=== PATIENT | female | born 1950 | race Caucasian/White ===

== ENCOUNTER 2020-08-27 07:10 | Outpatient (CLI) | payer OTHER, SELFPAY ==
[2020-08-27 07:50] LABS: Alanine Aminotransferase 13 U/L (4-35); Albumin Level 4.3 g/dL (3.5-5.1); Alkaline Phosphatase 50 U/L (38-126); Anion Gap 8 mmol/L (8-16); Aspartate Amino Transferase 24 U/L (14-36); Bilirubin,Total 0.3 mg/dL (0.2-1.3); Blood Urea Nitrogen 18 mg/dL (7-17); Carbon Dioxide 29 mmol/L (22-30); Chloride 105 mmol/L (98-107); Cholesterol 240 mg/dL (0-200); Estimated Glomerular Filt Rate > 60; Glucose 84 mg/dL (65-105); HDL Direct 70 mg/dL; Potassium 4.5 mmol/L (3.4-5.0); Sodium 142 mmol/L (137-145); Triglycerides 79 mg/dL (<150)
[2020-08-27 08:01] LABS: LDL Cholesterol Direct 120 mg/dL
== END 2020-08-27 07:11 | disposition home or self-care (01) ==
PROVIDERS: PCP Internal Medicine; Visit Provider Nurse Practitioner
DX: E78.5 Hyperlipidemia, unspecified (principal); E03.9 Hypothyroidism, unspecified; Z79.899 Other long term (current) drug therapy
CPT/HCPCS: 36415; 80053; 80061; 84443

== ENCOUNTER 2022-11-16 01:05 | Day surgery (SDC) | payer OTHER, SELFPAY ==
[2022-10-30 13:08] VITALS: BMI 22.2
--- NOTE | 2022-11-14 20:03 | PM.HPGS ---
History of Present Illness History of Present Illness Consent: Risks, benefits, and alternatives have been discussed and questions answered. Patient agrees to proceed with procedure. Chief complaint: Hx of Colon Polyps Narrative: Deb Segura is a 72 year old female who had 2 polyps removed 8 years ago Review of Systems Review of Systems: All systems reviewed & are unremarkable except as noted in HPI and below PMFSH Family History Family History Father Patient's father is Family history of heart disease in male family member before age 55 Social History Social History Smoking status: Never smoker Alcohol intake: current Drinks per week: 1 Substance use type: does not use Lack of Transportation: No Lack of Food: Never True Current Housing: I Have Housing Concerned About Future Housing: No Difficulty Paying Gas/Electric Bills: No Difficulty Paying for Meds: No Currently Unemployed: No Education: Master's Degree or Higher Difficulty w/ Childcare or Family Care: No Living arrangements: with family Spiritual care concerns: No Meds Home Medications and Allergies Home Medications Medication Instructions Recorded Confirmed Type albuterol sulfate 90 mcg/actuation 2 inh inhalation Q4-6H PRN 10/13/22 10/30/22 Rx aerosol inhaler (ProAir HFA) shortness of breath or wheezing #25.5 grams levothyroxine 88 mcg tablet 88 mcg PO DAILY #90 tabs 10/13/22 10/30/22 Rx (Synthroid) Allergies Allergy/AdvReac Type Severity Reaction Status Date / Time amoxicillin Allergy Unknown RASH Verified 10/30/22 13:07 Penicillins Allergy Unknown Hives Verified 10/30/22 13:07 Exam Resp: Auscultation: clear to auscultation bilaterally Cardio: Rate: regular rate Rhythm: regular rhythm GI: GI Palp: Yes Soft to palpation and No Tenderness to palpation present (GI) Assessment and Plan Assessment and plan (1) Colon cancer screening: Code(s): Z12.11 - Encounter for screening for malignant neoplasm of colon Status: Acute Assessment and Plan: Colonoscopy with possible biopsy or polypectomy or cautery or injection of substances.
[2022-11-16 08:20] VITALS: BP 127/65; PULSE 56; RESP 18; TEMP 36.3; O2SAT 56; BMI 22.6
[2022-11-16] MEDS: LACTATED RINGERS 1,000 ML 150 ML IV CONT (08:28)
--- NOTE | 2022-11-16 09:18 | P.PNAN_ITS ---
Anes - Initial Pre Proc Eval Procedure: Operation Date: 11/16/22 09:30 Proposed Procedures p Screening Colonoscopy - Primitivo Tidwell MD Date/Time: 11/16/22 09:18 Surgeon: Primitivo Tidwell MD Pre Op Diagnosis: Hx of Colon Polyps Patient Data Age: 72 Gender: F Height: 1.6 m Weight: 58.1 kg Last Vital Signs Temp 97.4 F L 11/16/22 08:20 Pulse 56 L 11/16/22 08:20 Resp 18 11/16/22 08:20 BP 127/65 11/16/22 08:20 Pulse Ox 56 L 11/16/22 08:20 O2 Del Method Room Air 11/16/22 08:20 Allergies Allergy/AdvReac Type Severity Reaction Status Date / Time amoxicillin Allergy Unknown RASH Verified 10/30/22 13:07 Penicillins Allergy Unknown Hives Verified 10/30/22 13:07 Home Medications Medication Instructions Recorded Confirmed Type albuterol sulfate 90 mcg/actuation 2 inh inhalation Q4-6H PRN 10/13/22 10/30/22 Rx aerosol inhaler (ProAir HFA) shortness of breath or wheezing #25.5 grams levothyroxine 88 mcg tablet 88 mcg PO DAILY #90 tabs 10/13/22 10/30/22 Rx (Synthroid) Patient hx anesthesia problems: none Family hx anesthesia problems: none Results Review: All pre-operative results and documents have been reviewed as part of the pre- operative evaluation. [facility] Family History Family History Father Patient's father is Family history of heart disease in male family member before age 55 Social History Social History Smoking status: Never smoker Alcohol intake: current Drinks per week: 1 Substance use type: does not use Lack of Transportation: No Lack of Food: Never True Current Housing: I Have Housing Concerned About Future Housing: No Difficulty Paying Gas/Electric Bills: No Difficulty Paying for Meds: No Currently Unemployed: No Education: Master's Degree or Higher Difficulty w/ Childcare or Family Care: No Living arrangements: with family Spiritual care concerns: No Anes - Eval Final PreProcedure Day of Procedure 11/16/22 09:18 Patient weight: normal Heart: regular rate and rhythm Lungs: clear to auscultation Airway: Mallampati scale class II Neurological: alert and oriented Last oral intake: >/= 8 hours ASA classification: III Emergent: no Anesthetic plan: proceed Anesthesia type and monitoring: general GIVS and standard monitoring Results Review: All pre-operative results and documents have been reviewed as part of the pre- operative evaluation. Informed Consent: The patient's anesthetic plan and its attendant risks and benefits were discussed with the patient/family/POA. Questions were solicited and answers provided to the satisfaction of the patient/family/POA.
[2022-11-16 09:41] VITALS: BP 93/50; PULSE 59; RESP 18; O2SAT 99
[2022-11-16 09:51] VITALS: BP 120/69; PULSE 56; RESP 17; O2SAT 99
[2022-11-16 10:01] VITALS: BP 122/70; PULSE 55; RESP 17; O2SAT 100
== END 2022-11-16 10:17 | disposition home or self-care (01) ==
PROVIDERS: PCP Internal Medicine; Visit Provider Internal Medicine Gastroenterology
PROC: 0DJD8ZZ Inspection of Lower Intestinal Tract, Via Natural or Artificial Opening Endoscopic (ICD-10-PCS; CPT 45378; principal; 2022-11-16 09:30)
DX: Z12.11 Encounter for screening for malignant neoplasm of colon (principal); K57.30 Diverticulosis of large intestine without perforation or abscess without bleeding; K64.8 Other hemorrhoids; Z86.010 Personal history of colon polyps; Z79.51 Long term (current) use of inhaled steroids
CPT/HCPCS: G0105; J2704; J7120

== ENCOUNTER 2023-06-08 08:43 | Outpatient (CLI) | payer OTHER, SELFPAY ==
[2023-06-08 09:38] LABS: Basophils Absolute Auto 0.1 K/mm3 (0.0-0.1); Eosinophils Absolute Auto 0.3 K/mm3 (0-0.3); Eosinophils Percent Auto 4.4 % (0-4.4); Hematocrit 37.9 % (37.0-47.0); Immature Granulocyte Absolute 0.01 K/mm3 (0.00-0.031); Immature Granulocyte Percent A 0.1 % (0-0.5); Lymphocytes Absolute Auto 2.06 K/mm3 (0.9-3.2); Mean Corpuscular HGB Conc 31.7 g/dl (32-36); Mean Corpuscular Hemoglobin 29.9 pg (26-34); Mean Corpuscular Volume 94.5 fl (80-100); Mean Platelet Volume 9.8 fl (7.4-10.4); Monocytes Absolute Auto 0.4 K/mm3 (0.1-0.6); Monocytes Percent Auto 6.4 % (2.6-8.5); Neutrophils Percent Auto 58.1 % (45.5-73.1); Platelet Count Result 256 k/mm3 (150-375); Red Blood Count 4.01 M/mm3 (4.2-5.4); Red Cell Distribution Width 13.2 % (11.5-14.5); White Blood Count 6.9 K/mm3 (4.5-10.0)
[2023-06-08 09:51] LABS: Alanine Aminotransferase 18 U/L (6-35); Albumin Level 4.3 g/dL (3.5-5.1); Alkaline Phosphatase 65 U/L (38-126); Anion Gap 6 mmol/L (8-16); Aspartate Amino Transferase 28 U/L (14-36); Bilirubin,Total 0.5 mg/dL (0.2-1.3); Blood Urea Nitrogen 24 mg/dL (7-17); Calcium 8.9 mg/dL (8.4-10.2); Carbon Dioxide 31 mmol/L (22-30); Chloride 103 mmol/L (98-107); Cholesterol 219 mg/dL (0-200); Estimated Glomerular Filt Rate > 60; Glucose 88 mg/dL (65-110); HDL Direct 60 mg/dL; Potassium 4.3 mmol/L (3.4-5.0); Sodium 140 mmol/L (137-145); Triglycerides 77 mg/dL (<150)
[2023-06-08 10:02] LABS: LDL Cholesterol Direct 106 mg/dL
[2023-06-08 10:29] LABS: Free T4 Free Thyroxine 1.03 ng/mL (0.78-2.19)
== END 2023-06-08 08:44 | disposition home or self-care (01) ==
PROVIDERS: PCP Family Medicine; Visit Provider Nurse Practitioner Family
DX: Z13.0 Encounter for screening for diseases of the blood and blood-forming organs and certain disorders involving the immune mechanism (principal); Z13.228 Encounter for screening for other metabolic disorders; Z13.220 Encounter for screening for lipoid disorders; Z78.0 Asymptomatic menopausal state; E78.2 Mixed hyperlipidemia; E03.9 Hypothyroidism, unspecified
CPT/HCPCS: 36415; 80053; 80061; 84439; 84443; 85025

== ENCOUNTER 2024-01-24 06:35 | Outpatient (CLI) | payer OTHER, SELFPAY ==
[2024-01-24 07:19] LABS: Alanine Aminotransferase 16 U/L (6-35); Alkaline Phosphatase 54 U/L (38-126); Anion Gap 4 mmol/L (8-16); Aspartate Amino Transferase 26 U/L (14-36); Bilirubin,Total 0.4 mg/dL (0.2-1.3); Blood Urea Nitrogen 21 mg/dL (7-17); Calcium 8.7 mg/dL (8.4-10.2); Carbon Dioxide 29 mmol/L (22-30); Chloride 107 mmol/L (98-107); Cholesterol 172 mg/dL (0-200); Estimated Glomerular Filt Rate > 60; Glucose 93 mg/dL (65-110); HDL Direct 49 mg/dL; Potassium 3.9 mmol/L (3.4-5.0); Sodium 140 mmol/L (137-145); Triglycerides 78 mg/dL (<150)
[2024-01-24 07:30] LABS: LDL Cholesterol Direct 101 mg/dL
[2024-01-24 07:56] LABS: Free T4 Free Thyroxine 1.21 ng/mL (0.78-2.19)
== END 2024-01-24 06:36 | disposition home or self-care (01) ==
LOC: ANHLAB 06:39
PROVIDERS: PCP Family Medicine; Visit Provider Nurse Practitioner Family
DX: E78.2 Mixed hyperlipidemia (principal); Z13.228 Encounter for screening for other metabolic disorders; E03.9 Hypothyroidism, unspecified; Z13.220 Encounter for screening for lipoid disorders
CPT/HCPCS: 36415; 80053; 80061; 84439; 84443

== ENCOUNTER 2024-07-31 09:10 | Outpatient (CLI) | payer OTHER, SELFPAY ==
[2024-07-31 09:37] LABS: Hematocrit 40.6 % (37.0-47.0); Mean Corpuscular Volume 93.5 fl (80-100); Mean Platelet Volume 9.6 fl (7.4-10.4); Platelet Count Result 225 k/mm3 (150-375); Red Blood Count 4.34 M/mm3 (4.2-5.4); Red Cell Distribution Width 13.3 % (11.5-14.5)
[2024-07-31 09:50] LABS: Alanine Aminotransferase 19 U/L (6-35); Albumin Level 4.5 g/dL (3.5-5.1); Alkaline Phosphatase 63 U/L (38-126); Anion Gap 5 mmol/L (4-12); Aspartate Amino Transferase 31 U/L (14-36); Bilirubin,Total 0.7 mg/dL (0.2-1.3); Blood Urea Nitrogen 17 mg/dL (7-17); Calcium 9.3 mg/dL (8.4-10.2); Carbon Dioxide 32 mmol/L (22-30); Chloride 100 mmol/L (98-107); Estimated Glomerular Filt Rate > 60; Glucose 93 mg/dL (65-110); Potassium 4.2 mmol/L (3.4-5.0); Sodium 137 mmol/L (137-145)
[2024-07-31 10:21] LABS: Vitamin D 25 Hydroxy 48.5 ng/mL
== END 2024-07-31 09:11 | disposition home or self-care (01) ==
PROVIDERS: PCP Family Medicine; Visit Provider Nurse Practitioner Family
DX: E03.9 Hypothyroidism, unspecified (principal); E78.2 Mixed hyperlipidemia; J45.30 Mild persistent asthma, uncomplicated; K63.5 Polyp of colon; M85.80 Other specified disorders of bone density and structure, unspecified site; Z13.21 Encounter for screening for nutritional disorder
CPT/HCPCS: 36415; 80053; 82306; 84443; 85027

== ENCOUNTER 2024-11-23 08:33 | Outpatient (CLI) | payer OTHER, SELFPAY ==
--- NOTE | ~2024-11-23 | XR_ITS ---
XR knee RT min 4V Ordering provider: Sudha Kathleen APRN History: . M25.561 Pt states pain to medial side of rt knee x 2 mths . Comparison: None. FINDINGS: BONES: No acute fracture or dislocation. JOINT SPACES: Narrowing of the medial compartment. Marginal osteophytes in the patella. SOFT TISSUES: Normal. IMPRESSION: No acute osseous abnormality right knee. Mild to moderate osteoarthritic changes. Reviewed, dictated and finalized at location A. PHYSICAL THERAPIST
--- OUTSIDE RECORDS SUMMARY | 2024-11-30 01:41 | XMS_ITS | Patient Health Summary ---
Author Organization [facility] Address [address] [place] [address] Care Team Providers Care Secret Code Expert Name Role Phone Gavin Angelo MD Primary Care Provider [phone] Note from [facility],non-owned Affiliates and Associated Physician Practices is amultiple site organization consisting of ambulatory clinics and hospital sitesin [place], [place], [place] and [place]. This disclosure is being madepursuant to the Care Everywhere program and may not contain all information available regarding this patient. Last updated 18.[facility] Allergies * Diphenhydramine(Burning) * Penicillins(Rash) -High Criticality Medications * Be aware that medications may not be up to date on this document. Alwaysverify current medications with the patient. * levothyroxine (SYNTHROID) 50 MCG tablet Take 50 mcg by mouth daily before breakfast * ALBUTEROL SULFATE HFA IN Social History Tobacco Use Types Packs/Day Years Used Date Smoking Tobacco: Never Smokeless Tobacco: Never Alcohol Use Standard Drinks/Week Comments Not Asked 0 (1 standard drink = 0.6 oz pur e alcohol) Sex and Gender Information Value Date Recorded Sex Assigned at Not on file Gender Identity Not on file Sexual Orientation Not on file Last Filed Vital Signs Vital Sign Reading Time Taken Comments Blood Pressure 126/74 10/11/2017 6:34 PM CRUSHING MACHINE OPERATOR Pulse 88 10/11/2017 6:34 PM CRUSHING MACHINE OPERATOR Temperature 36.7 ??C (98.1 ??F) 10/11/2017 6:34 PM CS T Respiratory Rate 15 10/11/2017 6:34 PM CRUSHING MACHINE OPERATOR Oxygen Saturation 96% 10/11/2017 6:34 PM CRUSHING MACHINE OPERATOR Inhaled Oxygen Concentration - - Weight 54.4 kg (120 lb) 10/11/2017 6:34 PM CRUSHING MACHINE OPERATOR Height 157.5 cm (5' 2 ) 10/11/2017 6:34 PM CRUSHING MACHINE OPERATOR Body Mass Index 21.95 10/11/2017 6:34 PM CRUSHING MACHINE OPERATOR Procedures * STREP A SCREEN - POINT OF CARE (AMB) STL(Performed 10/11/2017) Performed for Nasopharyngitis acute * STREP A SCREEN - POINT OF CARE (AMB) STL(Performed 07/13/2016) Performed for Pharyngitis, streptococcal, acute Results * STREP A SCREEN (10/11/2017) Only the most recent of2 resultswithin the time period is included. Strep A Rapid POCT Negative Negative Strep A Internal Control Present Lot # [id number] Expiration Date 03/23/19 Throat ENTIRE THROAT (SURFACE REGION OF NECK) / Unknown 10/11/2017 Tanisha Fan ENVIRONMENTAL ADVISOR-PARTS COUNTER ASSOCIATE LAB - POINT OF CA RE ORDERABLES Care Teams Secret Code Expert Relationship Specialty Start Date [place] [address] PCP - General Internal Medicine 07/13/16
--- OUTSIDE RECORDS SUMMARY | 2024-11-30 01:41 | XMS_ITS | Clinical Summary ---
Author Organization [facility] Address [address] [place] [address] Care Team Providers Care Photographer Apprentice Lithographic Name Role Phone Gavin Angelo MD Primary Care Provider [phone] Source Comments [facility],non-owned Affiliates and Associated Physician Practices is amultiple site organization consisting of ambulatory clinics and hospital sitesin [place], [place], [place] and [place]. This disclosure is being madepursuant to the Care Everywhere program and may not contain all information available regarding this patient. Last updated 18.[facility] Allergies Active Allergy Reactions Criticality Noted Date Comments Diphenhydramine 07/13/2016 Burning Penicillins Rash High 07/13/2016 Medications * Be aware that medications may not be up to date on this document. Alwaysverify current medications with the patient. Medication Sig Dispensed Refills Start Date End Date Status levothyroxine (SYNTHROID) 50 MCG tablet Take 50 mcg by mouth daily before breakfast Active ALBUTEROL SULFATE HFA IN Active Social History Tobacco Use Types Packs/Day Years [...] Comments Blood Pressure 126/74 10/11/2017 6:34 PM LEGAL ANALYST Pulse 88 10/11/2017 6:34 PM LEGAL ANALYST Temperature 36.7 ??C (98.1 ??F) 10/11/2017 6:34 PM CS T Respiratory Rate 15 10/11/2017 6:34 PM LEGAL ANALYST Oxygen Saturation 96% 10/11/2017 6:34 PM LEGAL ANALYST Inhaled Oxygen Concentration - - Weight 54.4 kg (120 lb) 10/11/2017 6:34 PM LEGAL ANALYST Height 157.5 cm (5' 2 ) 10/11/2017 6:34 PM LEGAL ANALYST Body Mass Index 21.95 10/11/2017 6:34 PM LEGAL ANALYST Plan of Treatment Health Maintenance Due Date Last Done Comments BONE DENSITY TESTING 1950 HEPATITIS C SCREENING 10/25/1966 DTAP/TDAP/TD VACCINES (1 - Tdap) 1967 PNEUMOCOCCAL VACCINE 50+ (1 of 1 - PCV) 1998 ZOSTER VACCINE (1 of 2) 1998 Respiratory Syncytial Virus (RSV) Vaccine Pt: or over 60 yrs (1 - 1-dose 75+ series) 2023 COVID-19 VACCINE ( - 2023-2 5 season) 2024 INFLUENZA VACCINE (#1) 2024 DEPRESSION SCREENING 11/08/2024 HEPATITIS B VACCINE Aged Out No longe r eligible based on patient's age to complete this topic HIB VACCINE Aged Out No longer eligi ble based on patient's age to complete this topic HPV VACCINE Aged Out No longer eligi ble based on patient's age to complete this topic MENINGOCOCCAL (Group B) VACCINE Aged Out No longer eligible based on patient's age to complete this topic MENINGOCOCCAL VACCINE Aged Out No roger ihsan eligible based on patient's age to complete this topic Care Teams Photographer Apprentice Lithographic Relationship Specialty Start Date End Date Gavin Angelo MD [address] [place] [id number] PCP - General Internal Medicine 07/13/16
--- OUTSIDE RECORDS SUMMARY | 2024-11-30 01:41 | XMS_ITS | Referral Summary ---
Author Organization [facility] Address [address] [place] [address] Care Team Providers Care Executive Staff Assistant Name Role Phone Gavin Angelo MD Primary Care Provider [phone] Source Comments [facility],non-owned Affiliates and Associated Physician Practices is amultiple site organization consisting of ambulatory clinics and hospital sitesin [place], [place], [place] and [place]. This disclosure is being madepursuant to the Care Everywhere program and may not contain all information available regarding this patient. Last updated 18.[facility] Allergies Active Allergy Reactions Criticality Noted Date [...] Comments Blood Pressure 126/74 10/11/2017 6:34 PM EQUIPMENT TESTER Pulse 88 10/11/2017 6:34 PM EQUIPMENT TESTER Temperature 36.7 ??C (98.1 ??F) 10/11/2017 6:34 PM CS T Respiratory Rate 15 10/11/2017 6:34 PM EQUIPMENT TESTER Oxygen Saturation 96% 10/11/2017 6:34 PM EQUIPMENT TESTER Inhaled Oxygen Concentration - - Weight 54.4 kg (120 lb) 10/11/2017 6:34 PM EQUIPMENT TESTER Height 157.5 cm (5' 2 ) 10/11/2017 6:34 PM EQUIPMENT TESTER Body Mass Index 21.95 10/11/2017 6:34 PM EQUIPMENT TESTER Plan of Treatment Not on file Care Teams Executive Staff Assistant Relationship Specialty Start Date End Date Gavin Angelo MD [address] [place] [phone] PCP - General Internal Medicine 07/13/16
== END 2024-11-23 08:34 | disposition home or self-care (01) ==
LOC: ANHIMG 08:36
PROVIDERS: PCP Family Medicine; Visit Provider Nurse Practitioner Family
DX: M17.11 Unilateral primary osteoarthritis, right knee (principal)
CPT/HCPCS: 73564

== ENCOUNTER 2025-06-10 07:58 | Outpatient (CLI) | payer OTHER, SELFPAY ==
--- NOTE | ~2025-06-10 | CT_ITS ---
EXAMINATION: CT sinus wo con DATE: 06/10/2025 08:21 INDICATION: Chronic sinusitis TECHNIQUE: Computed tomography (CT) of the paranasal sinuses was performed without intravenous contra st. The dose-length product was 297.72 mGy-cm. Automated exposure control and iterative reconstructio n technique were employed. COMPARISON: None FINDINGS: Mild mucosal thickening of the maxillary sinuses. There is hypertrophy of the inferior turb inates. The ostiomeatal units are patent. Leftward nasal septal deviation. Mild mucosal thickening of the posterior ethmoids and sphenoid sinuses. Mastoids are pneumatized. IMPRESSION: 1. Mild sinus disease. Reviewed, dictated and finalized at location A. IMPRESSION: 1. Mild sinus disease.
--- OUTSIDE RECORDS SUMMARY | 2025-06-10 08:01 | XMS_ITS | Clinical Summary ---
Author Organization [facility] Address [address] [place] [address] Care Team Providers Care Boring Machine Operator Name Role Phone Gavin Angelo MD Primary Care Provider [phone] Source Comments [facility],non-owned Affiliates and Associated Physician Practices is amultiple site organization consisting of ambulatory clinics and hospital sitesin [place], [place], [place] and [place]. This disclosure is being madepursuant to the Care Everywhere program and may not contain all information available regarding this patient. Last updated 18.[facility] Allergies Active Allergy Reactions Criticality Noted Date Comments Diphenhydramine 07/13/2016 Burning Penicillins Rash High 07/13/2016 Medications * Be aware that medications may not be up to date on this document. Alwaysverify current medications with the patient. levothyroxine (SYNTHROID) 50 MCG tablet Take 50 mcg by mouth daily before breakfast Active ALBUTEROL SULFATE HFA IN Activ e Social History Tobacco Use Types Packs/Day Years Used Date Smoking Tobacco: Never Smokeless Tobacco: Never Alcohol Use Standard Drinks/Week Comments Not Asked 0 (1 standard drink = 0.6 oz pur e alcohol) Comments No Sex and Gender Information Value Date Recorded Sex Assigned at Not on file Legal Sex Female 5:17 AM CUT OFF WORKER Gender Identity Not on file Sexual Orientation Not on file Last Filed Vital Signs Vital Sign Reading Time Taken Comments Blood Pressure 126/74 10/11/2017 6:34 PM CUT OFF WORKER Pulse 88 10/11/2017 6:34 PM CUT OFF WORKER Temperature 36.7 C (98.1 F) 10/11/2017 6:34 PM CUT OFF WORKER Respiratory Rate 15 10/11/2017 6:34 PM CUT OFF WORKER Oxygen Saturation 96% 10/11/2017 6:34 PM CUT OFF WORKER Inhaled Oxygen Concentration - - Weight 54.4 kg (120 lb) 10/11/2017 6:34 PM CUT OFF WORKER Height 157.5 cm (5' 2) 10/11/2017 6:34 PM CUT OFF WORKER Body Mass Index 21.95 10/11/2017 6:34 PM CUT OFF WORKER Plan of Treatment Health Maintenance Due Date Last Done Comments BONE DENSITY TESTING 1948 HEPATITIS C SCREENING 10/25/1966 DTAP/TDAP/TD VACCINES (1 - Tdap) 1967 PNEUMOCOCCAL VACCINE 50+ (1 of 1 - PCV) 1998 ZOSTER VACCINE (1 of 2) 1998 Respiratory Syncytial Virus (RSV) Vaccine Pt: or over 60 yrs (1 - 1-dose 75+ series) 2023 COVID-19 VACCINE ( - 2023-2 5 season) 2024 DEPRESSION SCREENING 11/08/2024 INFLUENZA VACCINE (#1) 2025 HEPATITIS B VACCINE Aged Out No longe r eligible based on patient's age to complete this topic HIB VACCINE Aged Out No longer eligi ble based on patient's age to complete this topic HPV VACCINE Aged Out No longer eligi ble based on patient's age to complete this topic MENINGOCOCCAL (Group B) VACC INE SHARED DECISION-MAKING Aged Out No longer eligibl e based on patient's age to complete this topic MENINGOCOCCAL GROUPS A/C/Y/W VACCINE Aged Out No longer eligible b ased on patient's age to complete this topic Insurance [address] [place] [address] CARE [facility] Address: [address] [address] Care Teams Boring Machine Operator Relationship Specialty Start Date End Date Gavin Angelo MD [address] [place] [phone] PCP - General Internal Medicine 07/13/16
== END 2025-06-10 07:59 | disposition home or self-care (01) ==
PROVIDERS: PCP Nurse Practitioner Family; Visit Provider Otolaryngology Otolaryngology/Facial Plastic Surgery
DX: J32.9 Chronic sinusitis, unspecified (principal); J33.8 Other polyp of sinus
CPT/HCPCS: 70486

== ENCOUNTER 2025-06-11 08:42 | Outpatient (CLI) | payer OTHER, SELFPAY ==
--- OUTSIDE RECORDS SUMMARY | 2025-06-11 08:46 | XMS_ITS | Clinical Summary ---
Author Organization [facility] [employer] Address [address] [place] [address] Care Team Providers Care Oracle Ascp Consultant Name Role Phone Gavin Angelo MD Primary Care Provider [phone] Source Comments [facility] [employer]non-owned Affiliates and Associated Physician Practices is amultiple site organization consisting of ambulatory clinics and hospital sitesin [place], [place] and [place]. This disclosure is being madepursuant to the Care Everywhere program and may not contain all information available regarding this patient. Last updated 18.[facility] [employer] 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 Gender Identity Not on file Sexual Orientation Not on file Last Filed Vital Signs Vital Sign Reading Time Taken Comments Blood Pressure 126/74 10/11/2017 6:34 PM ATOMIC PHYSICS TEACHER Pulse 88 10/11/2017 6:34 PM ATOMIC PHYSICS TEACHER Temperature 36.7 C (98.1 F) 10/11/2017 6:34 PM ATOMIC PHYSICS TEACHER Respiratory Rate 15 10/11/2017 6:34 PM ATOMIC PHYSICS TEACHER Oxygen Saturation 96% 10/11/2017 6:34 PM ATOMIC PHYSICS TEACHER Inhaled Oxygen Concentration - - Weight 54.4 kg (120 lb) 10/11/2017 6:34 PM ATOMIC PHYSICS TEACHER Height 157.5 cm (5' 2) 10/11/2017 6:34 PM ATOMIC PHYSICS TEACHER Body Mass Index 21.95 10/11/2017 6:34 PM ATOMIC PHYSICS TEACHER Plan of Treatment Health Maintenance Due Date [...] patient's age to complete this topic [place] [address] [address] [place] [address] CARE [facility] Address: [address] [address] Care Teams Oracle Ascp Consultant Relationship Specialty Start Date End Date Gavin Angelo MD [address] [place] [phone] PCP - General Internal Medicine 07/13/16
== END 2025-06-11 08:43 | disposition home or self-care (01) ==
LOC: ANHAUDASC 08:43
PROVIDERS: PCP Nurse Practitioner Family; Visit Provider Otolaryngology Otolaryngology/Facial Plastic Surgery
DX: H93.11 Tinnitus, right ear (principal); H90.3 Sensorineural hearing loss, bilateral
CPT/HCPCS: 92557; 92567